=== PATIENT | male | born 1975 | race Hispanic/Latino ===

== ENCOUNTER 2020-05-14 07:17 | Emergency (ER) | payer SELFPAY ==
[~2020-05-14] VITALS: Ht 167.6 cm; Wt 90.7 kg
[2020-05-14 07:39] LABS: BASOPHILS # (AUTO) 0.1 (0.0-0.1); BASOPHILS % 0.5 % (0.0-1.0); EOSINOPHILS # (AUTO) 0.2 (0.0-0.4); HEMATOCRIT 35.2 % (38.2-49.6); HEMOGLOBIN 11.7 g/dL (14.0-18.0); LYMPHOCYTES # (AUTO) 2.2 (1.0-3.2); LYMPHOCYTES % 20.3 % (18.0-39.1); MEAN CORPUSCULAR HEMOGLOBIN 27.8 pg (28-32); MEAN CORPUSCULAR HGB CONC 33.2 g/dL (31-35); MEAN CORPUSCULAR VOLUME 83.6 fL (81-99); MONOCYTES # (AUTO) 0.4 (0.2-0.8); MONOCYTES % 3.9 % (4.4-11.3); NEUTROPHILS # (AUTO) 7.9 (2.1-6.9); NEUTROPHILS % 71.8 % (38.7-80.0); PLATELET COUNT 261 x10e3/uL (140-360); RED BLOOD COUNT 4.21 x10e6/uL (4.3-5.7); RED CELL DISTRIBUTION WIDTH 13.5 % (11.7-14.4)
[2020-05-14] MEDS ORDERED: PANTOPRAZOLE 40 MG 10ML VIAL IV STA (07:45)
--- NOTE | 2020-05-14 07:52 | Emergency Department Note ---
History of Present Illnes History of Present Illness Chief Complaint: Abdominal Complaints History of Present Illness This is a 45 year old male arrives to the ED with complaints of vomiting bright red blood. 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 Any updates have been documented here. Past Medical History Recent Fever: No Clinical Suspicion of Infectio: No New/Unexplained Change in Ment: No Past Medical History: Hypertension Other Medical History: HYPERLIPIDEMIA Past Surgical History: None Social History Smoking Cessation: Former smoker Other Last Tetanus: UNK Any Pre-Existing Lines (PICC,: No Review of Systems Review of Systems Constitutional: Reports no symptoms EENTM: Reports no symptoms Cardiovascular: Reports no symptoms Respiratory: Reports no symptoms Gastrointestinal: Reports as per HPI, Reports vomiting Genitourinary: Reports no symptoms Musculoskeletal: Reports no symptoms Integumentary: Reports no symptoms Neurological: Reports no symptoms Psychological: Reports no symptoms Endocrine: Reports no symptoms Hematological/Lymphatic: Reports no symptoms Physical Exam Related Data Allergies: Coded Allergies: No Known Drug Allergies (Verified Allergy, Unknown, 09/01/16) Triage Vital Signs Vital Signs Date Time Temp Pulse Resp B/P (MAP) Pulse Ox O2 Delivery O2 Flow Rate FiO2 05/14/20 07:20 98.1 121 18 90/52 100 Room Air Vital signs reviewed: Yes Physical Exam CONSTITUTIONAL Constitutional: Present well-developed, Present diaphoretic, Present ill appearing HENT HENT: Present normocephalic, Present atraumatic, Present oropharynx clear/moist, Present nose normal HENT L/R: Present left ext ear normal, Present right ext ear normal EYES Eyes: Reports PERRL, Reports conjunctivae normal NECK Neck: Present ROM normal PULMONARY Pulmonary: Present effort normal, Present breath sounds normal CARDIOVASCULAR Cardiovascular: Present regular rhythm, Present heart sounds normal, Present capillary refill normal, Present tachycardia GASTROINTESTINAL Abdominal: Present soft, Present bowel sounds normal, Present tender GENITOURINARY Genitourinary: Present exam deferred SKIN Skin: Present warm, Present dry MUSCULOSKELETAL Musculoskeletal: Present ROM normal NEUROLOGICAL Neurological: Present alert, Present oriented x 3, Present no gross motor or sensory deficits PSYCHOLOGICAL Psychological: Present mood/affect normal, Present judgement normal Results Laboratory Result Diagram: 05/14/20 0720 Laboratory Laboratory Tests Test 05/14/20 07:20 White Blood Count 10.96 x10e3/uL (4.8-10.8) Red Blood Count 4.21 x10e6/uL (4.3-5.7) Hemoglobin 11.7 g/dL (14.0-18.0) Hematocrit 35.2 % (38.2-49.6) Mean Corpuscular Volume 83.6 fL (81-99) Mean Corpuscular Hemoglobin 27.8 pg (28-32) Mean Corpuscular Hemoglobin Concent 33.2 g/dL (31-35) Red Cell Distribution Width 13.5 % (11.7-14.4) Platelet Count 261 x10e3/uL (140-360) Neutrophils (%) (Auto) 71.8 % (38.7-80.0) Lymphocytes (%) (Auto) 20.3 % (18.0-39.1) Monocytes (%) (Auto) 3.9 % (4.4-11.3) Eosinophils (%) (Auto) 2.0 % (0.0-6.0) Basophils (%) (Auto) 0.5 % (0.0-1.0) Neutrophils # (Auto) 7.9 (2.1-6.9) Lymphocytes # (Auto) 2.2 (1.0-3.2) Monocytes # (Auto) 0.4 (0.2-0.8) Eosinophils # (Auto) 0.2 (0.0-0.4) Basophils # (Auto) 0.1 (0.0-0.1) Absolute Immature Granulocyte (auto 0.16 x10e3/uL (0-0.1) Lab results reviewed: Yes Imaging Imaging results reviewed: Yes Impressions IMPRESSION: 1. Layering hyperdense debris within the gastric fundus and duodenum are nonspecific given presence of IV contrast however could relate to blood products given clinical history of upper GI bleed. Underlying ulcer is difficult to exclude at the level of the duodenum. Consider gastroenterology consultation and possible upper endoscopy. 2. Focal wall thickening of the hepatic flexure and proximal transverse colon is nonspecific but could relate to colitis. No surrounding inflammatory changes are noted. 3. Mild hepatic steatosis. Critical Care Time Total Critical Care Time (min): 65 Critical care time exclusive o: separately billable procedures Critcal care necessary due to: circulatory failure Critcal care time spent by me: discussion w consultants, interpret cardiac output measures, evaluation patient response to tx, examination of patient, order/perform tx or interventions Comments Upper GI bleed, hemodynamically unstable patient Assessment & Plan Medical Decision Making MDM 45-year-old male arrives to the ED with complaints of bright red blood in his vomit, concerns of upper GI bleed. Patient tachycardic and hypotensive. Patient's hemoglobin noted to be 10, gastroenterology consulted and patient required ICU admission. Patient required transfer to [facility] for higher level of care given ICU capacity at [facility]. Clinical Impression and Disposition Plan My clinical impression includes: Upper GI bleed, esophageal varices, perforated ulcer, Becca-Clark tear No diagnosis found. And plan is admit for: -Further monitoring and evaluation is medically necessary -Failure to respond to outpatient treatment -Changes in pt's condition require medical attention -High risk for adverse event impacting life/organs/systems -Impossible to complete diagnostic studies as an outpatient -Signs/symptoms could lead to deterioration of patient -Treatment plan will require frequent clinical modifications -Treatment requires inpatient setting All clinical impressions and diagnoses provided are preliminary ED determinations subject to the inherent limitations of an emergent non-scheduled evaluation and possible lack of comprehensive previous records. All patient care including history taking, review of systems, physical exam, nursing notes review, medical decision making, clinical course management in the emergency department, clinical impression, disposition and plan formulation was performed on the date of service. This note was created using a voice-recognition transcribing system. Incorrect words or phrases may have been missed during proofreading. Please interpret accordingly. Assessment & Plan Final Impression: (1) UGIB (upper gastrointestinal bleed) Depart Disposition: TRANS TO OTHER [facility] Last Vital Signs Date Time Temp Pulse Resp B/P (MAP) Pulse Ox O2 Delivery O2 Flow Rate FiO2 05/14/20 07:20 98.1 121 18 90/52 100 Room Air MICHAEL CHAMBERS DO May 14, 2020 07:52
[2020-05-14] MEDS ORDERED: SODIUM CHLORIDE 0.9% 500ML 500 ML ONE (07:55)
[2020-05-14 07:59] LABS: ALANINE AMINOTRANSFERASE 16 IU/L (0-55); ALBUMIN 2.9 g/dL (3.5-5.0); ALBUMIN/GLOBULIN RATIO 1.3 (0.8-2.0); ALKALINE PHOSPHATASE 45 IU/L (40-150); ANION GAP 13.1 mmol/L (8-16); BLOOD UREA NITROGEN 35 mg/dL (7-26); BUN/CREATININE RATIO 41 (6-25); CALCIUM 7.9 mg/dL (8.4-10.2); CARBON DIOXIDE 20 mmol/L (22-29); CHLORIDE 109 mmol/L (98-107); CREATINE KINASE 99 IU/L (30-200); CREATININE, SERUM 0.86 mg/dL (0.72-1.25); EST GLOMERULAR FILTRATION RATE > 60 ML/MIN (60-); GLUCOSE 245 mg/dL (74-118); POTASSIUM 4.1 mmol/L (3.5-5.1); SODIUM 138 mmol/L (136-145)
--- NOTE | 2020-05-14 08:05 | NUR ---
Dr. Bills notified that patient became cold, clammy, diaphoretic, CT Scan notified that pt needs to be scanned STAT, INR added to lab orders
[2020-05-14] MEDS ORDERED: OCTREOTIDE ACETATE 500 MCG in SODIUM CHLORIDE 0.9% 250ML 250 ML SQ STA (08:07)
--- NOTE | 2020-05-14 08:10 | NUR ---
called Lab to add INR to lab orders
[2020-05-14] MEDS ORDERED: SODIUM CHLORIDE 0.9% 50ML 50 ML ONE (08:12)
[2020-05-14] MEDS ORDERED: IOPAMIDOL 370 MG/ML 200 ML INFUS..BTL INJ ONE (08:12)
--- NOTE | 2020-05-14 08:12 | NUR ---
pt to CT scan with Jessika at this time
[2020-05-14 08:18] LABS: INR 0.94; PROTHROMBIN TIME 13.1 seconds (11.9-14.5)
--- NOTE | 2020-05-14 08:30 | Diagnostic Imaging Report ---
TECHNIQUE: Frontal view of the chest. INDICATION: ^Y ^UGIB ^[id number] ^0740 COMPARISON: None DISCUSSION: Limited evaluation due to portable technique. Lines and hardware: None Heart and mediastinum: Stable. Lungs and pleura: No focal airspace consolidation. No pleural effusion. No pneumothorax. Soft tissues and bones: No acute abnormality. IMPRESSION: Negative for acute intrathoracic process. Signed by: Amador Oleary MD on 05/14/2020 8:26 AM
--- NOTE | 2020-05-14 09:03 | Diagnostic Imaging Report ---
CT of the abdomen and pelvis with contrast TECHNIQUE: CT of the abdomen and pelvis WITH intravenous contrast and WITHOUT oral contrast. Dose modulation, iterative reconstruction, and/or weight-based adjustment of the mA/kV was utilized to reduce the radiation dose to as low as reasonably achievable. IV CONTRAST: 100 mL of Isovue-370 ORAL CONTRAST: None RADIATION DOSE: Total DLP: 508 mGy*cm COMPLICATIONS: None INDICATION: ^Y ^UGIB ^[id number] ^0810. COMPARISON: None. FINDINGS: LOWER THORAX: Unremarkable. HEPATOBILIARY: Liver appears to be mildly hypodense. No suspicious hepatic lesion is identified. Gallbladder is surgically absent. No biliary ductal dilatation. SPLEEN: No splenomegaly. PANCREAS: No focal masses or ductal dilatation. ADRENALS: No adrenal nodules. KIDNEYS/URETERS: No hydronephrosis, stones, or masses. PELVIC ORGANS/BLADDER: Unremarkable. PERITONEUM/RETROPERITONEUM: No free air or fluid. LYMPH NODES: No lymphadenopathy. VESSELS: Unremarkable. GI TRACT: Hyperdense layering debris within the gastric fundus and duodenum are noted, nonspecific given presence of IV contrast. There is focal wall thickening of the transverse colon and hepatic flexure. Negative for bowel obstruction or surrounding inflammatory change. Normal appendix is noted. BONES AND SOFT TISSUES: Negative for acute osseous abnormality. Soft tissues are unremarkable. IMPRESSION: 1. Layering hyperdense debris within the gastric fundus and duodenum are nonspecific given presence of IV contrast however could relate to blood products given clinical history of upper GI bleed. Underlying ulcer is difficult to exclude at the level of the duodenum. Consider gastroenterology consultation and possible upper endoscopy. 2. Focal wall thickening of the hepatic flexure and proximal transverse colon is nonspecific but could relate to colitis. No surrounding inflammatory changes are noted. 3. Mild hepatic steatosis. Signed by: Amador Oleary MD on 05/14/2020 8:59 AM
--- NOTE | 2020-05-14 10:29 | NUR ---
patient accepted to [facility], accepting MD is Dr. Saeid Olivera and lease administrator is Mehul Manning
--- NOTE | 2020-05-14 10:55 | NUR ---
report given to Sapna Oleary RN from [facility]
--- NOTE | 2020-05-14 10:57 | NUR ---
[facility] called at this time to request emergent transfer
--- NOTE | 2020-05-14 10:59 | NUR ---
[facility] ETA 30-45 MINS, requested [facility]
--- NOTE | 2020-05-14 11:18 | NUR ---
MOT/COT signed by patient, Dr. Bills spoke to patient about risk and benefits of transfer, pending [facility]
[2020-05-14 12:08] VITALS: BP 107/69
== END 2020-05-14 12:10 | disposition other institution (70) ==
LOC: ER 08:07
DX: K92.2 Gastrointestinal hemorrhage, unspecified (principal); Z20.828 Contact with and (suspected) exposure to other viral communicable diseases; I10 Essential (primary) hypertension; E78.5 Hyperlipidemia, unspecified
CPT/HCPCS: 36415; 71045; 74177; 80053; 82550; 82553; 82948; 84484; 85025; 85610; 86850; 86900; 99284; C9113; J2353; J7040; J7050; Q9967; U0002